=== PATIENT | female | born 1935 | race Caucasian/White ===

== ENCOUNTER 2018-06-06 13:04 | Emergency (ER) | payer SELFPAY ==
[2018-06-06] MEDS: ACETAMINOPHEN 325 MG TAB PO (14:44)
== END 2018-06-06 16:16 | disposition home or self-care (01) ==
LOC: FTE 13:04
DX: S86.811A Strain of other muscle(s) and tendon(s) at lower leg level, right leg, initial encounter (principal); W01.0XXA Fall on same level from slipping, tripping and stumbling without subsequent striking against object, initial encounter; Y92.9 Unspecified place or not applicable
CPT/HCPCS: 73562; 73590; 93971; 99284-25